=== PATIENT | male | born 1940 | race Caucasian/White ===

== ENCOUNTER 2016-04-20 15:33 | Emergency (ER) | payer OTHER ==
[~2016-04-20] VITALS: Ht 175.3 cm; Wt 96.3 kg
[~2016-04-20 15:33] MED LIST: ASCO100061 PO; ASPI-435 PO; ATEN50TA8 PO; B-COCAP2 PO; CALCTAB5 PO; CHOL20007 PO; CLOP1TAB15 PO; COEN400C3 PO; GLUC10007 PO; MAGN400T6 PO; METF-384 PO; METO50TA16 PO; MULT-506 PO; NTRGSL/4 SL; OMEG10007 PO; PRED-301 PO; PRLSR20 PO; STLS PO; VITA400C15 PO; ZTA10 PO
[2016-04-20 15:39] VITALS: Ht 175.3 cm; Wt 96.3 kg
[2016-04-20] MEDS ORDERED: ALBUT/IPRATROP 3MG/0.5MG NEB 3 ML VIAL INH STA (17:19)
[2016-04-20 17:34] VITALS: O2SAT 93
[2016-04-20 18:04] LABS: BASO % 0.3 %; BASO ABS # 0.02 K/uL (0-0.2); COMPLETE YES; EOS % 2.1 %; HEMATOCRIT 42.7 % (42-52); IG% 0.3 %; LYMPH % 22.9 %; LYMPH ABS # 1.49 K/uL (1.2-3.4); MEAN CELL VOLUME 94.1 fL (80-100); MEAN CORPUSCULAR HEMOGLOBIN 31.9 pg (25-34); MONO % 14.9 %; NEUT % 59.5 %; PLATELET COUNT 267 K/uL (130-400); RED BLOOD COUNT 4.54 M/uL (4.7-6.1); WHITE BLOOD COUNT 6.52 K/uL (4.8-10.8)
[2016-04-20 18:16] LABS: INR 1.1 (0.9-1.1); PROTHROMBIN TIME (PATIENT) 11.3 SECONDS (9.0-12.0)
[2016-04-20 18:24] LABS: BUN/CREATININE RATIO 15.3 (10-20); CREATININE 0.92 mg/dl (0.60-1.40); POTASSIUM 4.4 mmol/L (3.5-5.1)
--- NOTE | 2016-04-20 18:50 | DIAGNOSTIC IMAGING REPORT ---
CHEST 2 VIEWS ROUTINE CLINICAL HISTORY: Pneumonia COMPARISON STUDY: 09/16/2015 FINDINGS: There are postsurgical changes of a midline sternotomy. The heart is borderline enlarged. There is no failure. There are bibasilar opacities, most likely atelectatic. There is blunting of the right lateral costophrenic angle suggesting a trace effusion[ IMPRESSION: 1. Borderline cardiomegaly 2. Trace right pleural effusion 3. No evidence of lobar consolidation 4. Bibasilar opacities, likely atelectatic Electronically signed by: Pavel Baron M.D. 04/20/2016 6:49 PM Dictated Date/Time: 04/20/2016 6:48 PM
[2016-04-20] MEDS ORDERED: AZITHROMYCIN 250 MG TAB PO STA (19:13)
[2016-04-20] MEDS ORDERED: AZIT250T PO (19:15)
[2016-04-20] MEDS ORDERED: ALBUTEROL HFA 8 GM INHALER INH ONE (19:15)
[2016-04-20 19:47] VITALS: BP 133/86; PULSE 79; TEMP 36.5; O2SAT 94
--- NOTE | 2016-04-20 20:33 | EMERGENCY ROOM VISIT NOTE ---
History Report prepared by Tanner: Diandra Poole Under the Supervision of: Dr. Rob Salvador M.D. First contact with patient: 17:07 Chief Complaint: REFERRED BY DOCTOR Stated Complaint: LOW OXYGEN LEVELS- DR [facility] History of Present Illness The patient is a 75 year old male who presents to the Emergency Room to be evaluated for hypoxia this evening. The patient states that last week he initially developed a sore throat and a cough last week. His cough was productive with clear or light green/yellow sputum. Currently, he still has a cough, but it is no longer productive. He has some epigastric pain with coughing. Today, he went to Rodo Metcalf's office to be seen for a follow up appointment and his oxygen saturation was in the mid 80s. He states he did not feel short of breath at the time. He was put on nasal canula oxygen with improvement of the pulse ox. Per patient's daughter, he seemed slightly pale at the time but his color has improved. He was subsequently referred to the ER. Currently, the patient does not have any complaints. He notes that he has not been feeling any more short of breath than he does at baseline. He does not have any history of lung disease. He did have a heart surgery this past October. He does not have a history of smoking. Denies fevers, chills, chest pain, vomiting, leg swelling or pain, or other complaints. Source of History: patient Onset: this evening Position: other (global) Symptom Intensity: O2 in the 80s Modifying Factors (Relieving): oxygen Associated Symptoms: + cough, + sorethroat, No SOB, No chest pain, No chills , No fevers Review of Systems See HPI for pertinent positives & negatives. A total of 10 systems reviewed and were otherwise negative. Past Medical & Surgical Medical Problems: (1) ESOPHAGEAL REFLUX (2) HYPERLIPIDEMIA NEC/NOS (3) PAD (peripheral artery disease) Family History Heart disease Social History Smoking Status: Never Smoker Alcohol Use: occasionally Drug Use: none Marital Status: Housing Status: lives with significant other Occupation Status: retired Current/Historical Medications Scheduled Ascorbic Acid (Ascorbic Acid), 1,000 MG PO DAILY Aspirin (Aspirin 81), 81 MG PO BIDM Atenolol (Tenormin), 25 MG PO QPM Azithromycin (Zithromax), 250 MG PO DAILY Calcium (Caltrate), 600 MG PO QPM Cholecalciferol (Vitamin D3), 4,000 UNIT PO DAILY Clopidogrel (Plavix), 75 MG PO DAILY Coenzyme Q10 (Ubidecarenone) (Co Q-10 Maximum Strength), 400 MG PO DAILY Ezetimibe (Zetia), 10 MG PO DAILY Fish Oil ([place]-3), 2,400 MG PO QPM Glucosamine Sulfate (Glucosamine), 2,000 MG PO DAILY Magnesium Oxide (Mag-Ox), 400 MG PO DAILY Metformin Hcl (Glucophage), 1,000 MG PO BID Metoprolol Tartrate (Lopressor) (Lopressor), 50 MG PO BID Multivitamin (Multivitamin), 1 TAB PO DAILY Nitroglycerin (Nitrostat), 1 TAB SL UD Omeprazole (Prilosec), 20 MG PO TID Prednisone (Prednisone), 10 MG PO UD Stool Softener (Stool Softener), 100 MG PO BID Tocopheryl Acet,Dl-Alpha (Vitamin E), 400 INTER.UNIT PO DAILY Vitamin B Cmplx/Vitc/Folic Ac (Nephrocaps), 1 CAP PO QPM Allergies Coded Allergies: Yellow Jacket (Verified Allergy, Unknown, ANAPHYLAXIS, 04/20/16) Uncoded Allergies: INSECT STINGS (Allergy, Unknown, ANAPHYLAXIS, 09/27/15) WASPS (Allergy, Unknown, ANAPHYLAXIS, 09/27/15) Physical Exam Vital Signs Date Time Temp Pulse Resp B/P Pulse Ox O2 Delivery O2 Flow Rate FiO2 04/20/16 19:47 36.5 79 20 133/86 94 04/20/16 18:10 79 20 133/86 94 Room Air 04/20/16 17:34 93 Room Air 04/20/16 17:22 74 04/20/16 15:39 36.5 83 18 133/91 93 Room Air Physical Exam Constitutional: Vital signs reviewed. Pulse ox was 94 on room air. Eyes: Pupils are equal round reactive to light. Conjunctiva are noninjected. ENT: Pharynx is clear without erythema or exudate. Mucous membranes are moist. Neck supple without meningeal signs. Respiratory: Expiratory wheezing to auscultation bilaterally. Breath sounds are equal bilaterally. Cardiovascular: Regular rate and rhythm. No rubs or gallops. GI: Soft, nondistended and nontender. Bowel sounds are present. Musculoskeletal: No peripheral edema. No lower extremity tenderness. Sternal tenderness on palpation. Integumentary: No cyanosis. Neurological: The patient is awake and alert. No focal deficits. Psychiatric: Normal affect. Medical Decision & Procedures ER Provider Diagnostic Interpretation: X-ray results as stated below per interpretation by me and the radiologist: CHEST 2 VIEWS ROUTINE CLINICAL HISTORY: Pneumonia COMPARISON STUDY: 09/16/2015 FINDINGS: There are postsurgical changes of a midline sternotomy. The heart is borderline enlarged. There is no failure. There are bibasilar opacities, most likely atelectatic. There is blunting of the right lateral costophrenic angle suggesting a trace effusion[ IMPRESSION: 1. Borderline cardiomegaly 2. Trace right pleural effusion 3. No evidence of lobar consolidation 4. Bibasilar opacities, likely atelectatic Electronically signed by: Pavel Baron M.D. 04/20/2016 6:49 PM Dictated Date/Time: 04/20/2016 6:48 PM Laboratory Results 04/20/16 17:45 Red Blood Count 4.54, Mean Corpuscular Volume 94.1, Mean Corpuscular Hemoglobin 31.9, Mean Corpuscular Hemoglobin Concent 34.0, Mean Platelet Volume 9.0, Neutrophils (%) (Auto) 59.5, Lymphocytes (%) (Auto) 22.9, Monocytes (%) (Auto) 14.9, Eosinophils (%) (Auto) 2.1, Basophils (%) (Auto) 0.3, Neutrophils # (Auto ) 3.88, Lymphocytes # (Auto) 1.49, Monocytes # (Auto) 0.97, Eosinophils # (Auto ) 0.14, Basophils # (Auto) 0.02 04/20/16 17:45 Test 04/20/16 17:30 04/20/16 17:45 04/20/16 18:00 Influenza Type A Antigen Neg for Influ A (NEG) Influenza Type B Antigen Neg for Influ B (NEG) White Blood Count 6.52 K/uL (4.8-10.8) Red Blood Count 4.54 M/uL (4.7-6.1) Hemoglobin 14.5 g/dL (14.0-18.0) Hematocrit 42.7 % (42-52) Mean Corpuscular Volume 94.1 fL (80-100) Mean Corpuscular Hemoglobin 31.9 pg (25-34) Mean Corpuscular Hemoglobin Concent 34.0 g/dl (32-36) Platelet Count 267 K/uL (130-400) Mean Platelet Volume 9.0 fL (7.4-10.4) Neutrophils (%) (Auto) 59.5 % Lymphocytes (%) (Auto) 22.9 % Monocytes (%) (Auto) 14.9 % Eosinophils (%) (Auto) 2.1 % Basophils (%) (Auto) 0.3 % Neutrophils # (Auto) 3.88 K/uL (1.4-6.5) Lymphocytes # (Auto) 1.49 K/uL (1.2-3.4) Monocytes # (Auto) 0.97 K/uL (0.11-0.59) Eosinophils # (Auto) 0.14 K/uL (0-0.5) Basophils # (Auto) 0.02 K/uL (0-0.2) RDW Standard Deviation 51.6 fL (36.4-46.3) RDW Coefficient of Variation 15.1 % (11.5-14.5) Immature Granulocyte % (Auto) 0.3 % Immature Granulocyte # (Auto) 0.02 K/uL (0.00-0.02) Prothrombin Time 11.3 SECONDS (9.0-12.0) Prothromb Time International Ratio 1.1 (0.9-1.1) Activated Partial Thromboplast Time 26.7 SECONDS (21.0-31.0) Partial Thromboplastin Ratio 1.0 Anion Gap 9.0 mmol/L (3-11) Est Creatinine Clear Calc Drug Dose 77.0 ml/min Estimated GFR () 92.7 Estimated GFR (Non- 79.9 BUN/Creatinine Ratio 15.3 (10-20) Calcium Level 9.0 mg/dl (8.5-10.1) Bedside Troponin I 0.000 ng/ml (0-0.045) PZ-Ujy-M-Type Natriuretic Peptide 621 pg/ml (0-1800) Laboratory results as reviewed by me. 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 A complete history and physical exam was performed. 1718: Ordered DuoNeb 3 ml INH. 1815: I reassessed the patient. He finished the nebulizer treatment and is feeling much better. He has no wheezing on exam. 1912: I discussed test results with the patient. He is feeling better. He will be discharged home. Ordered Azithromycin 500 m PO, Albuterol 2 puffs INH. Medical Decision This is a 75-year-old male sent here by his doctor's office because of a low pulse oximeter reading and cold symptoms. Differential diagnosis includes pneumonia, bronchitis, URI, influenza, hypoxia. I did perform a limited focused review of portions of the patient's old chart on the electronic medical record. The patient has had no recent pertinent visits to this hospital. I did evaluate the patient as noted above. IV access was established. The patient was placed on a continuous panel monitor. The patient does not have any hypoxia on our monitor. He is not short of breath and has a pulse ox of 94 % on room air. I did order and personally review the patient's 12-lead EKG and chest x-ray as described above. Chest x-ray did not show any signs of pneumonia although I did note increased markings at the right base which were concerning to me. I did order and review the patient's blood work as noted in the electronic medical record. Troponin is 0. He is not anemic. Rapid flu test is negative. On exam the patient was wheezing. He was given a DuoNeb here. On reexamination his wheezing is completely resolved. He also feels much better. I did discuss the test results with the patient. His pulse ox remains 94% on room air. At this time there is no indication for hospitalization. It is unclear why his pulse ox was low at his doctor's office. This may be some type of equipment failure. I did recommend antibiotic treatment for his symptoms which she agreed with. He was given Zithromax 500 mg here and given a prescription for 4 more days at 250 mg. He was also given an albuterol MDI. He was discharged in good condition. He was advised follow closely with his doctor. Impression Primary Impression: Bronchitis Additional Impression: Reactive airway disease Scribe Attestation The scribe's documentation has been prepared under my direct and personally reviewed by me in its entirety. I confirm that the note above accurately reflects all work, treatment, procedures, and medical decision making performed by me. Departure Information Dispostion Home / Self-Care Prescriptions Azithromycin (Zithromax) 250 Mg Tab 250 MG PO DAILY, #4 TAB Prov: Rob Salvador M.D. 04/20/16 Referrals Rodo Metcalf III, CRNP (PCP) Patient Instructions ED Bronchitis Abx Tx, My [facility] Additional Instructions You have been examined and treated today on an emergency basis only. This is not a substitute for, or an effort to provide, complete comprehensive medical care. It is impossible to recognize and treat all injuries or illnesses in a single emergency department visit. It is therefore important that you follow up closely with your physician. Call as soon as possible for an appointment. Return for worsening symptoms or if you develop fever, vomiting, or any other concerning symptoms. Problem Qualifiers Additional Impression: Reactive airway disease Asthma severity: unspecified severity Asthma complication type: uncomplicated Qualified Codes: J45.909 - Unspecified asthma, uncomplicated
== END 2016-04-20 19:48 | disposition home or self-care (01) ==
LOC: C.EDB 15:35 → C.EDA 19:48
DX: J45.909 Unspecified asthma, uncomplicated (principal); K21.9 Gastro-esophageal reflux disease without esophagitis; E78.5 Hyperlipidemia, unspecified; I73.9 Peripheral vascular disease, unspecified; Z82.49 Family history of ischemic heart disease and other diseases of the circulatory system

== ENCOUNTER → 2016-04-22 | Outpatient (CLI) | payer OTHER ==
[~2016-04-22] MED LIST changes: +AZIT250T PO; +B-COTAB18 PO; +CALC-393 PO; +HYDR5SYP11 PO; +SENNTAB23 PO; +VITA400C3 PO; +VNTHFA/IN INH
[2016-04-22 09:31] LABS: BASO % 0.1 %; BASO ABS # 0.01 K/uL (0-0.2); COMPLETE YES; HEMATOCRIT 43.5 % (42-52); LYMPH % 32.3 %; LYMPH ABS # 2.26 K/uL (1.2-3.4); MEAN CELL VOLUME 93.5 fL (80-100); MEAN CORPUSCULAR HEMOGLOBIN 31.6 pg (25-34); MEAN CORPUSCULAR HGB CONC 33.8 g/dl (32-36); MEAN PLATELET VOLUME 9.2 fL (7.4-10.4); MONO % 9.3 %; NEUT % 55.3 %; PLATELET COUNT 281 K/uL (130-400); RED BLOOD COUNT 4.65 M/uL (4.7-6.1)
[2016-04-22 09:53] LABS: ESTIMATED AVERAGE GLUCOSE 146 mg/dl; HA1C FLAG Normal (Normal)
[2016-04-22 09:54] LABS: ALB/GLOB RATIO 0.9 (0.9-2); ALKALINE PHOSPHATASE 71 U/L (45-117); ALT/SGPT 40 U/L (12-78); AST/SGOT 18 U/L (15-37); BLOOD UREA NITROGEN 16 mg/dl (7-18); BUN/CREATININE RATIO 15.7 (10-20); CALCIUM 9.4 mg/dl (8.5-10.1); CARBON DIOXIDE 29 mmol/L (21-32); CHLORIDE 102 mmol/L (98-107); CHOLESTEROL 193 mg/dl (0-200); CHOLESTEROL/HDL RATIO 3.3; GLUCOSE 103 mg/dl (70-99); HDL CHOLESTEROL 58 mg/dl; LDL CHOLESTEROL CALCULATED 100 mg/dl; MAGNESIUM 2.1 mg/dl (1.8-2.4); SODIUM 140 mmol/L (136-145); TRIGLYCERIDES 174 mg/dl (0-150); VERY LOW DENSITY LIPOPROT CALC 35 mg/dl
[2016-04-22 10:08] LABS: RATIO 5.9 mcg/mg (0-30.0)
== END | disposition home or self-care (01) ==
LOC: C.LAB1850 07:03
PROVIDERS: ATTEND Nurse Practitioner Family
DX: K21.9 Gastro-esophageal reflux disease without esophagitis (principal); E88.81 Metabolic syndrome and other insulin resistance; E78.5 Hyperlipidemia, unspecified; E11.9 Type 2 diabetes mellitus without complications; I25.10 Atherosclerotic heart disease of native coronary artery without angina pectoris

== ENCOUNTER 2016-04-26 16:33 | Emergency (ER) | payer OTHER ==
[~2016-04-26] VITALS: Ht 175.3 cm; Wt 95.0 kg
[~2016-04-26 16:33] MED LIST changes: -B-COTAB18 PO; -CALC-393 PO; -HYDR5SYP11 PO; -SENNTAB23 PO; -VITA400C3 PO; -VNTHFA/IN INH
[2016-04-26 16:45] VITALS: TEMP 36.9; Ht 175.3 cm; Wt 95.0 kg
[2016-04-26] MEDS ORDERED: HYDROCODONE/HOMATROPINE SYRUP 5MG/1.5MG 5ML UDP PO STA (17:07)
[2016-04-26] MEDS ORDERED: HYDR5SYP11 PO (17:08)
[2016-04-26] MEDS ORDERED: HYCODAN 60ML BOTTLE HOMEPACK PO ONE (17:15)
--- NOTE | 2016-04-26 17:32 | EMERGENCY ROOM VISIT NOTE ---
History First contact with patient: 16:50 Chief Complaint: COUGH Stated Complaint: LOW O2 LEVELS, COUGHING SPELLS- HEART SURGERY 10/28 Nursing Triage Summary: Pt seen here Wed and placed on zpak and an inhaler for early pnx. "I have a dry cough that I can hardly stop. I had heart surgery in Oct and the coughing bothers me. I am coming here to try to get something to help with the cough." History of Present Illness The patient is a 75 year old male who presents to the Emergency Room with complaints of cough. He reports he came to the ED Wednesday after being sent here from his PCP's office for low oxygen saturations. He was prescribed a Z-pack which he completed yesterday and also an albuterol inhaler. He reports he felt better but his cough was persistent and nothing was helping it. He wanted to have an extra day of antibiotics. He denied any new fevers, chest pain, shortness of breath, or wheeze. Review of Systems See HPI for pertinent positives & negatives. A total of 10 systems reviewed and were otherwise negative. Past Medical/Surgical History Medical Problems: (1) ESOPHAGEAL REFLUX (2) HYPERLIPIDEMIA NEC/NOS (3) PAD (peripheral artery disease) PSHx: Bypass surgery in October 2015 Family History Heart disease Social History Smoking Status: Never Smoker Alcohol Use: occasionally Drug Use: none Marital Status: Housing Status: lives with significant other Occupation Status: retired Current/Historical Medications Scheduled Ascorbic Acid (Ascorbic Acid), 1,000 MG PO DAILY Aspirin (Aspirin 81), 81 MG PO BIDM Atenolol (Tenormin), 25 MG PO QPM Azithromycin (Zithromax), 250 MG PO DAILY Calcium (Caltrate), 600 MG PO QPM Cholecalciferol (Vitamin D3), 4,000 UNIT PO DAILY Clopidogrel (Plavix), 75 MG PO DAILY Coenzyme Q10 (Ubidecarenone) (Co Q-10 Maximum Strength), 400 MG PO DAILY Ezetimibe (Zetia), 10 MG PO DAILY Fish Oil ([place]-3), 2,400 MG PO QPM Glucosamine Sulfate (Glucosamine), 2,000 MG PO DAILY Magnesium Oxide (Mag-Ox), 400 MG PO DAILY Metformin Hcl (Glucophage), 1,000 MG PO BID Metoprolol Tartrate (Lopressor) (Lopressor), 50 MG PO BID Multivitamin (Multivitamin), 1 TAB PO DAILY Nitroglycerin (Nitrostat), 1 TAB SL UD Omeprazole (Prilosec), 20 MG PO TID Prednisone (Prednisone), 10 MG PO UD Stool Softener (Stool Softener), 100 MG PO BID Tocopheryl Acet,Dl-Alpha (Vitamin E), 400 INTER.UNIT PO DAILY Vitamin B Cmplx/Vitc/Folic Ac (Nephrocaps), 1 CAP PO QPM Scheduled PRN Hydrocodone W/ Homatropine (Hycodan 5/1.5MG 5 Ml), 5 ML PO HS PRN for Cough Allergies Coded Allergies: Yellow Jacket (Verified Allergy, Unknown, ANAPHYLAXIS, 04/20/16) Uncoded Allergies: INSECT STINGS (Allergy, Unknown, ANAPHYLAXIS, 09/27/15) WASPS (Allergy, Unknown, ANAPHYLAXIS, 09/27/15) Physical Exam Vital Signs Date Time Temp Pulse Resp B/P Pulse Ox O2 Delivery O2 Flow Rate FiO2 04/26/16 16:45 36.9 77 20 144/86 92 Room Air Physical Exam GENERAL: Awake, alert, well-appearing, in no acute distress HENT: Normocephalic, atraumatic. Oropharynx unremarkable. EYES: Normal conjunctiva. Sclera non-icteric. NECK: Supple. No nuchal rigidity. FROM. No JVD. RESPIRATORY: Clear to auscultation. No wheeze with forced expiration. CARDIAC: Regular rate, normal rhythm. Extremities warm and well perfused. Pulses equal. LOWER EXTREMITIES: Calves are equal size bilaterally and non-tender. No edema. No discoloration. NEURO: Normal sensorium. No sensory or motor deficits noted. SKIN: No rash or jaundice noted. Medical Decision & Procedures Medical Decision 75 yo M with recent atypical pneumonia, treated with Azithromycin, who presents with persistent cough. Differential includes: bronchospasm, atelectasis, GERD, worsening pneumonia. With his history and clinical exam it seemed the cough was his biggest issue. His O2 saturations were 92% on room air and he did not feel short of breath at all. He had follow up with his PCP for tomorrow AM at 7am. He did not want to have another CXR, nor did I think this was indicated. He was provided with a prescription for hycodan syrup and discharged home in good condition. Impression Primary Impression: Cough Departure Information Dispostion Home / Self-Care Condition GOOD Prescriptions Hydrocodone W/ Homatropine (HYCODAN 5/1.5MG 5 ML) 1 Syp Syp 5 ML PO HS Y for Cough, #120 ML Prov: Edmar Joseph MD 04/26/16 Referrals Kym Patton DO (PCP) Forms HOME CARE DOCUMENTATION FORM, IMPORTANT VISIT INFORMATION Patient Instructions My [facility] Additional Instructions Follow up with your PCP as arranged (tomorrow at 7am). Use the cough syrup tonight as needed. If you notice any chest pain, shortness of breath, worsening wheeze, fevers, or other symptoms, please seek medical attention or return to the ED. Resident Tracking Resident Involvement: Resident Care Provided Care Provided: Adult ED
--- NOTE | 2016-04-26 17:33 | EMERGENCY ROOM VISIT NOTE ---
ED Visit Note First contact with patient: 16:50 Resident Physician Supervision Note: I interviewed and examined the patient. Discussed with Dr. Lewis and agree with findings and plan as documented in the note. Documented By: Edmar Joseph Problem List Medical Problems: (1) ESOPHAGEAL REFLUX Status: Chronic (2) HYPERLIPIDEMIA NEC/NOS Status: Chronic Current/Historical Medications Scheduled Ascorbic Acid (Ascorbic Acid), 1,000 MG PO DAILY Aspirin (Aspirin 81), 81 MG PO BIDM Atenolol (Tenormin), 25 MG PO QPM Azithromycin (Zithromax), 250 MG PO DAILY Calcium (Caltrate), 600 MG PO QPM Cholecalciferol (Vitamin D3), 4,000 UNIT PO DAILY Clopidogrel (Plavix), 75 MG PO DAILY Coenzyme Q10 (Ubidecarenone) (Co Q-10 Maximum Strength), 400 MG PO DAILY Ezetimibe (Zetia), 10 MG PO DAILY Fish Oil ([place]-3), 2,400 MG PO QPM Glucosamine Sulfate (Glucosamine), 2,000 MG PO DAILY Magnesium Oxide (Mag-Ox), 400 MG PO DAILY Metformin Hcl (Glucophage), 1,000 MG PO BID Metoprolol Tartrate (Lopressor) (Lopressor), 50 MG PO BID Multivitamin (Multivitamin), 1 TAB PO DAILY Nitroglycerin (Nitrostat), 1 TAB SL UD Omeprazole (Prilosec), 20 MG PO TID Prednisone (Prednisone), 10 MG PO UD Stool Softener (Stool Softener), 100 MG PO BID Tocopheryl Acet,Dl-Alpha (Vitamin E), 400 INTER.UNIT PO DAILY Vitamin B Cmplx/Vitc/Folic Ac (Nephrocaps), 1 CAP PO QPM Scheduled PRN Hydrocodone W/ Homatropine (Hycodan 5/1.5MG 5 Ml), 5 ML PO HS PRN for Cough Allergies Coded Allergies: Yellow Jacket (Verified Allergy, Unknown, ANAPHYLAXIS, 04/26/16) Uncoded Allergies: INSECT STINGS (Allergy, Unknown, ANAPHYLAXIS, 09/27/15) WASPS (Allergy, Unknown, ANAPHYLAXIS, 09/27/15) Vital Signs Date Time Temp Pulse Resp B/P Pulse Ox O2 Delivery O2 Flow Rate FiO2 04/26/16 16:45 36.9 77 20 144/86 92 Room Air Departure Information Impression Primary Impression: Cough Dispostion Home / Self-Care Condition GOOD Prescriptions Hydrocodone W/ Homatropine (HYCODAN 5/1.5MG 5 ML) 1 Syp Syp 5 ML PO HS Y for Cough, #120 ML Prov: Edmar Joseph MD 04/26/16 Referrals Kym Patton DO (PCP) Forms HOME CARE DOCUMENTATION FORM, IMPORTANT VISIT INFORMATION Patient Instructions My [facility] Additional Instructions Follow up with your PCP as arranged (tomorrow at 7am). Use the cough syrup tonight as needed. If you notice any chest pain, shortness of breath, worsening wheeze, fevers, or other symptoms, please seek medical attention or return to the ED.
[2016-04-26] MEDS ORDERED: VNTHFA/IN INH (17:39)
[2016-04-26] MEDS ORDERED: B-COTAB18 PO (17:39)
[2016-04-26] MEDS ORDERED: SENNTAB23 PO (17:39)
[2016-04-26] MEDS ORDERED: VITA400C3 PO (17:39)
[2016-04-26] MEDS ORDERED: CALC-393 PO (17:39)
[2016-04-26 18:08] VITALS: BP 139/85; PULSE 69; O2SAT 92
== END 2016-04-26 17:45 | disposition home or self-care (01) ==
LOC: C.EDB 16:36 → C.EDC 17:45
DX: R05 Cough (principal); K21.9 Gastro-esophageal reflux disease without esophagitis; E78.5 Hyperlipidemia, unspecified; I73.9 Peripheral vascular disease, unspecified

== ENCOUNTER → 2016-07-22 | Outpatient (CLI) | payer OTHER ==
[~2016-07-22] MED LIST changes: -AZIT250T PO; -B-COCAP2 PO; +B-COTAB18 PO; +CALC-393 PO; -CALCTAB5 PO; +SENNTAB23 PO; -STLS PO; -VITA400C15 PO; +VITA400C3 PO; +VNTHFA/IN INH
[2016-07-22 09:54] LABS: BLOOD UREA NITROGEN 24 mg/dl (7-18); BUN/CREATININE RATIO 27.8 (10-20); CALCIUM 9.4 mg/dl (8.5-10.1); CARBON DIOXIDE 32 mmol/L (21-32); CHLORIDE 104 mmol/L (98-107); CREATININE 0.86 mg/dl (0.60-1.40); GLUCOSE 111 mg/dl (70-99); POTASSIUM 4.4 mmol/L (3.5-5.1); SODIUM 140 mmol/L (136-145)
[2016-07-22 09:55] LABS: TRIGLYCERIDES 123 mg/dl (0-150)
[2016-07-22 10:08] LABS: ESTIMATED AVERAGE GLUCOSE 128 mg/dl; HA1C FLAG Normal (Normal)
== END | disposition home or self-care (01) ==
LOC: C.LAB1850 06:45
PROVIDERS: ATTEND Nurse Practitioner Family
DX: K21.9 Gastro-esophageal reflux disease without esophagitis (principal); I10 Essential (primary) hypertension; E88.81 Metabolic syndrome and other insulin resistance; M15.9 Polyosteoarthritis, unspecified; E11.9 Type 2 diabetes mellitus without complications; I25.10 Atherosclerotic heart disease of native coronary artery without angina pectoris; E78.5 Hyperlipidemia, unspecified

== ENCOUNTER 2016-08-01 11:08 | Emergency (ER) | payer OTHER ==
[~2016-08-01] VITALS: Ht 175.3 cm; Wt 90.0 kg
[2016-08-01 11:10] VITALS: Ht 175.3 cm; Wt 90.0 kg
[2016-08-01] MEDS ORDERED: XYLOCAINE 1%/SOD BICARB 20 ML VIAL INFIL ONE (11:30)
[2016-08-01 12:25] VITALS: BP 164/90; PULSE 68; O2SAT 99
--- NOTE | 2016-08-01 14:57 | EMERGENCY ROOM VISIT NOTE ---
History Report prepared by Tanner: Chente Barrera Under the Supervision of: Dr. John Nguyen M.D. First contact with patient: 11:19 Chief Complaint: LEG PAIN,LEG INJURY Stated Complaint: CUT ON LEG History of Present Illness The patient is a 76 year old male who presents to the Emergency Room with complaints of leg pain that began 40 minutes ago. He rates his pain a 2/10 in severity. He was at work when he was walking by a machine. His leg got caught on the machine and cut open his leg. The machine was metal. His pants did not tear afterward. He is on Aspirin and Plavix secondary to a previous heart surgery. Pt denies LOC, other extremity pain, numbness, weakness, or other complaints. Source of History: patient Onset: 40 minutes ago Position: leg (right) Symptom Intensity: 2/10 Quality: ache Timing: constant Review of Systems See HPI for pertinent positives and negatives. A total of six systems were reviewed and were otherwise negative. Past Medical & Surgical Medical Problems: (1) ESOPHAGEAL REFLUX (2) HYPERLIPIDEMIA NEC/NOS (3) PAD (peripheral artery disease) Family History Heart disease Social History Smoking Status: Never Smoker Smokeless Tobacco Use: No Alcohol Use: none Drug Use: none Marital Status: Housing Status: lives with significant other Occupation Status: employed Current/Historical Medications Scheduled Ascorbic Acid (Ascorbic Acid), 1,000 MG PO DAILY Aspirin (Aspirin 81), 81 MG PO BIDM Atenolol (Tenormin), 25 MG PO QPM B-Complex Vitamins (Vitamin B Complex), 1 TAB PO DAILY Calcium Carbonate (Calcium), 600 MG PO QPM Cholecalciferol (Vitamin D3), 4,000 UNIT PO DAILY Clopidogrel (Plavix), 75 MG PO DAILY Coenzyme Q10 (Ubidecarenone) (Co Q-10 Maximum Strength), 400 MG PO DAILY Ezetimibe (Zetia), 10 MG PO DAILY Fish Oil ([place]-3), 2,400 MG PO QPM Glucosamine Sulfate (Glucosamine), 2,000 MG PO DAILY Magnesium Oxide (Mag-Ox), 400 MG PO DAILY Metformin Hcl (Glucophage), 1,000 MG PO BID Metoprolol Tartrate (Lopressor) (Lopressor), 50 MG PO BID Multivitamin (Multivitamin), 1 TAB PO DAILY Nitroglycerin (Nitrostat), 1 TAB SL UD Omeprazole (Prilosec), 20 MG PO TID Prednisone (Prednisone), 10 MG PO UD Sennosides-Docusate Sodium (Stool Softener), 1 TAB PO BID Vitamin E (Vitamin E 400 Iu), 400 INTER.UNIT PO DAILY Scheduled PRN Albuterol Hfa (Ventolin Hfa), 2 PUFFS INH UD PRN for Cough Allergies Coded Allergies: Yellow Jacket (Verified Allergy, Unknown, ANAPHYLAXIS, 04/26/16) Uncoded Allergies: INSECT STINGS (Allergy, Unknown, ANAPHYLAXIS, 09/27/15) WASPS (Allergy, Unknown, ANAPHYLAXIS, 09/27/15) Physical Exam Vital Signs Date Time Temp Pulse Resp B/P Pulse Ox O2 Delivery O2 Flow Rate FiO2 08/01/16 12:25 68 20 164/90 99 Physical Exam GENERAL: Awake, alert, well-appearing, in no distress MUSCULOSKELETAL: Chest examination reveals no tenderness. The back is symmetrical on inspection without obvious abnormality. There is no CVA tenderness to palpation. No joint edema. There is a large J-shaped laceration to the right lateral wooten. NEURO: Normal sensorium. No sensory or motor deficits noted. SKIN: No rash or jaundice noted. Medical Decision & Procedures Procedure Laceration Repair Procedure Location: Right lateral wooten Total length: 10 cm Complexity: Intermediate Verbal consent was obtained after the risks and benefits were explained, including but not limited to bleeding, scarring, infection, pain, and bone/joint /nerve damage. At this time, the risks of the procedure are less than the risks of NOT performing the procedure. A time out was taken and the correct patient and site identified. The skin was prepped with betadine. The target area was anesthetized with 4 ml of 1% lidocaine without epinephrine. Copious irrigation was performed using normal saline. The skin was re-prepped with Betadine and a sterile field set. The wound was explored for foreign bodies and none found. Examination revealed no injury to deep structures such as tendons, bone, or significant blood vessels. Debridement was not performed. The wound edges were approximated using 16, 4-0 simple interrupted nylon sutures with Dermabond. Hemostasis and excellent approximation was achieved. Antibacterial ointment and a sterile dressing applied. Detailed wound care instructions and signs and symptoms of infection reviewed with the patient. No complications and the patient tolerated the procedure well. ED Course 1119: The patient was evaluated in room A10. A complete history and physical exam was performed. 1130: I performed a laceration repair procedure at this time. Please see the procedure note for more information. Ordered Lidocaine HCl 20 ml INFIL. 1230: I reevaluated the patient. Discussed results and discharge instructions: He verbalized understanding and agreement. The patient is ready for discharge. Medical Decision Patient presented to the emergency department with an isolated laceration to the right lower leg. The patient was consented. He underwent the laceration repair as above. There is no evidence of foreign body. No reason for imaging at this time. Blood work was deferred. Conservative management was discussed. The patient felt comfortable with the plan. He is discharged in stable condition. Impression Primary Impression: Laceration of right lower leg Scribe Attestation The scribe's documentation has been prepared under my direction and personally reviewed by me in its entirety. I confirm that the note above accurately reflects all work, treatment, procedures, and medical decision making performed by me. Departure Information Dispostion Home / Self-Care Referrals Kym Patton DO (PCP) Rodo Metcalf III, CRNP Forms HOME CARE DOCUMENTATION FORM, IMPORTANT VISIT INFORMATION Patient Instructions My [facility] Additional Instructions WOUND CARE INSTRUCTIONS: Bacitracin to wounds once daily. Use the gauze and mark wrap for the next 24-48 hours. Then Use a non-stick dressing such as a large band-aid. Change the dressings once a day. Tylenol as needed for pain. Allow your wounds to air dry several hours per day when you are resting, but it is a good idea to keep them covered while sleeping to prevent irritation and the sheets sticking to the wound. Apply direct pressure for any bleeding. Return to the ER immediately for spreading redness, fevers, pus-like drainage, severe pain, or as needed. Return to the ER or your family doctor in 10-12 days for suture removal, or sooner as needed. Problem Qualifiers Primary Impression: Laceration of right lower leg Encounter type: initial encounter Qualified Codes: S81.811A - Laceration without foreign body, right lower leg, initial encounter
== END 2016-08-01 12:26 | disposition home or self-care (01) ==
LOC: C.EDB 11:09 → C.EDA 12:26
DX: S81.811A Laceration without foreign body, right lower leg, initial encounter (principal); W22.8XXA Striking against or struck by other objects, initial encounter; Y99.0 Civilian activity done for income or pay; Z79.899 Other long term (current) drug therapy; E11.9 Type 2 diabetes mellitus without complications; I10 Essential (primary) hypertension; I73.9 Peripheral vascular disease, unspecified; Z95.1 Presence of aortocoronary bypass graft; Z79.02 Long term (current) use of antithrombotics/antiplatelets

== ENCOUNTER → 2016-10-29 | Outpatient (CLI) | payer OTHER ==
[2016-10-29 16:01] LABS: BASO % 0.2 %; BASO ABS # 0.02 K/uL (0-0.2); COMPLETE YES; EOS % 0.7 %; HEMATOCRIT 45.1 % (42-52); IG% 0.2 %; LYMPH % 21.1 %; LYMPH ABS # 1.76 K/uL (1.2-3.4); MEAN CELL VOLUME 96.8 fL (80-100); MEAN CORPUSCULAR HGB CONC 34.1 g/dl (32-36); MEAN PLATELET VOLUME 9.1 fL (7.4-10.4); MONO % 10.8 %; PLATELET COUNT 324 K/uL (130-400); RED BLOOD COUNT 4.66 M/uL (4.7-6.1); WHITE BLOOD COUNT 8.33 K/uL (4.8-10.8)
[2016-10-29 16:21] LABS: ALT/SGPT 26 U/L (12-78); AST/SGOT 16 U/L (15-37); BLOOD UREA NITROGEN 23 mg/dl (7-18); BUN/CREATININE RATIO 23.1 (10-20); CARBON DIOXIDE 27 mmol/L (21-32); CHLORIDE 106 mmol/L (98-107); GLUCOSE 137 mg/dl (70-99); SODIUM 139 mmol/L (136-145)
[2016-10-29 16:31] LABS: ALB/GLOB RATIO 1.1 (0.9-2); ALKALINE PHOSPHATASE 58 U/L (45-117)
== END | disposition home or self-care (01) ==
LOC: C.LAB1850 14:36
PROVIDERS: ATTEND Nurse Practitioner Family
DX: R55 Syncope and collapse (principal)

== ENCOUNTER → 2016-12-03 | Outpatient (CLI) | payer OTHER | END | disposition home or self-care (01) | LOC: C.PATHSPEC 16:32 | PROVIDERS: ATTEND Dermatology | DX: L82.0 Inflamed seborrheic keratosis (principal); L82.1 Other seborrheic keratosis ==

== ENCOUNTER → 2017-02-08 | Outpatient (CLI) | payer OTHER ==
[2017-02-08 09:26] LABS: BASO % 0.3 %; BASO ABS # 0.02 K/uL (0-0.2); COMPLETE YES; EOS % 1.8 %; HEMATOCRIT 45.9 % (42-52); IG% 0.3 %; LYMPH % 32.9 %; LYMPH ABS # 2.19 K/uL (1.2-3.4); MEAN CELL VOLUME 98.1 fL (80-100); MEAN CORPUSCULAR HEMOGLOBIN 33.3 pg (25-34); MEAN PLATELET VOLUME 9.3 fL (7.4-10.4); MONO % 13.4 %; NEUT % 51.3 %; PLATELET COUNT 305 K/uL (130-400); RED BLOOD COUNT 4.68 M/uL (4.7-6.1); WHITE BLOOD COUNT 6.65 K/uL (4.8-10.8)
[2017-02-08 09:48] LABS: BLOOD UREA NITROGEN 28 mg/dl (7-18); CALCIUM 8.8 mg/dl (8.5-10.1); CARBON DIOXIDE 28 mmol/L (21-32); CHLORIDE 104 mmol/L (98-107); CREATININE 0.94 mg/dl (0.60-1.40); GLUCOSE 93 mg/dl (70-99); POTASSIUM 4.2 mmol/L (3.5-5.1); SODIUM 140 mmol/L (136-145); TRIGLYCERIDES 184 mg/dl (0-150); VERY LOW DENSITY LIPOPROT CALC 37 mg/dl
[2017-02-08 09:51] LABS: ALKALINE PHOSPHATASE 61 U/L (45-117); ALT/SGPT 36 U/L (12-78); AST/SGOT 16 U/L (15-37); CHOLESTEROL 219 mg/dl (0-200); CHOLESTEROL/HDL RATIO 3.5; HDL CHOLESTEROL 62 mg/dl; LDL CHOLESTEROL CALCULATED 120 mg/dl
[2017-02-08 10:58] LABS: ESTIMATED AVERAGE GLUCOSE 128 mg/dl; HA1C FLAG Normal (Normal)
== END | disposition home or self-care (01) ==
LOC: C.LAB1850 07:29
PROVIDERS: ATTEND Nurse Practitioner Family
DX: I10 Essential (primary) hypertension (principal); E88.81 Metabolic syndrome and other insulin resistance; E11.9 Type 2 diabetes mellitus without complications; E78.5 Hyperlipidemia, unspecified

== ENCOUNTER → 2017-04-23 | Day surgery (SDC) | payer OTHER ==
[2017-04-13 08:23] VITALS: BMI 29.0
[~2017-04-23] VITALS: Ht 177.8 cm; Wt 93.2 kg
[~2017-04-23] MED LIST changes: -ATEN50TA8 PO; -CALC-393 PO; +CALC600T9 PO; -CLOP1TAB15 PO; +DOCU100T7 PO; +FENTANYL CITRATE INJ 50 MCG/1 ML 2 ML VIAL ONE; -GLUC10007 PO; +GLUCTAB7 PO; +LIDOCAINE HCL 2% 2 ML VIAL (20MG/ML) ONE; +METO-551 PO; +MIDAZOLAM HCL 1 MG/ML 2ML VIAL ONE; -NTRGSL/4 SL; +PROPOFOL IV EMULSION 10 MG/ML 20 ML VIAL IV ONE; -SENNTAB23 PO; +SODIUM CHLORIDE 0.9% 500ML 500 ML IV ONE; -VITA400C3 PO; -VNTHFA/IN INH
[2017-04-23 10:35] VITALS: Ht 177.8 cm; Wt 93.2 kg
--- NOTE | 2017-04-23 10:38 | Endo History and Physical ---
History & Physical Date of Service: Apr 23, 2017. Chief Complaint: Screening colonoscopy and GERD Referring Physician: Rodo Metcalf History of Present Illness 76 yo CM who presents for EGD secondary to GERD and Screening colonoscopy. Past Medical History Diabetes, Neurological Disorder, Arthritis, Reflux, High Cholesterol, Hypertension, Chronic Steroid Use Past Surgical History Hx Cardiac Surgery: Yes (HEART CATH, NO STENTS; CABG X5 VESSELS) Hx Internal Defibrillator: No Hx Pacemaker: No Hx Abdominal Surgery: No Hx of Implantable Prosthesis: No Hx Post-Op Nausea and Vomiting: No Hx Cancer Surgery: No Hx Thoracic Surgery: No Hx Orthopedic: Yes (LT/RT TKA) Hx Urinary Tract Surgery: No Family History None Social History Smoking Status: Never Smoker Hx Substance Use: No Hx Alcohol Use: No Allergies Coded Allergies: NO KNOWN DRUG ALLERGIES (Verified Allergy, Unknown, ., 04/13/17) Yellow Jacket (Verified Allergy, Unknown, ANAPHYLAXIS, 04/13/17) Uncoded Allergies: INSECT STINGS (Allergy, Unknown, ANAPHYLAXIS, 09/27/15) WASPS (Allergy, Unknown, ANAPHYLAXIS, 09/27/15) Current Medications Reported Home Medications Medications Dose Route/Sig Max Daily Dose Days Date Category Stool Softener (Docusate Sodium) 100 Mg Tab 1 Tab PO QPM 04/13/17 Reported Lopressor (Metoprolol Tartrate) 50 Mg Tab 50 Mg PO QPM 04/13/17 Reported Glucosamine Chondroitin (Snjessqjrrd-Meqmtsazrpz-Kpe C-) 1 Tab Tab 1 Tab PO DAILY 04/13/17 Reported Calcium + D (Calcium Carbonate-Vitamin D) 1 Tab Tab 1 Tab PO QAM 04/13/17 Reported Vitamin B Complex (B-Complex Vitamins) 1 Tab Tab 1 Tab PO DAILY 04/26/16 Reported Lopressor (Metoprolol Tartrate) 50 Mg Tab 0.5 Tab PO QAM 01/02/16 Reported Zetia (Ezetimibe) 10 Mg Tab 10 Mg PO QPM 09/16/15 Reported Vitamin D3 (Cholecalciferol) 2,000 Unit Tab 4,000 Unit PO DAILY 09/16/15 Reported Ascorbic Acid 1,000 Mg Tab 1,000 Mg PO DAILY 09/16/15 Reported Glucophage (Metformin Hcl) 1,000 Mg Tab 0.5 Tab PO BID 09/16/15 Reported Co Q-10 Maximum Strength (Coenzyme Q10 (Ubidecarenone)) 400 Mg Cap 400 Mg PO QAM 09/16/15 Reported Aspirin 81 (Aspirin) 81 Mg Tab 81 Mg PO QAM 09/16/15 Reported Mag-Ox (Magnesium Oxide) 400 Mg Tab 400 Mg PO DAILY 05/01/15 Reported Prednisone 5 Mg Tab 1 Tab PO BID 05/01/15 Reported [place]-3 (Fish Oil) 1 Ea Cap 2,400 Mg PO QPM 01/18/09 Reported Multivitamin (Multivitamins) Tab 1 Tab PO DAILY 01/18/09 Reported Prilosec (Omeprazole) 20 Mg Capcr 20 Mg PO BID 01/18/09 Reported Vital Signs Weight (Kilograms): 93.18 Height (Feet): 5 Height (Inches): 10 Physical Exam General Appearance: WD/WN, no apparent distress Respiratory/Chest: Auscultation: breath sounds normal Cardiovascular: Heart Auscultation: RRR Abdomen: Bowel Sounds: normal Inspection & Palpation: soft, non-distended, no tenderness, guarding & rebound Assessment and Plan Assessment: 76 yo CM who presents for EGD secondary to GERD and Screening colonoscopy. Plan: Proceed with EGD and colonoscopy.
--- NOTE | 2017-04-23 11:33 | Discharge Instructions ---
Endoscopy Patient Instructions Date / Procedure(s) Performed Apr 23, 2017. Colonoscopy, EGD Allergy Information Coded Allergies: NO KNOWN DRUG ALLERGIES (Verified Allergy, Unknown, ., 04/23/17) Yellow Jacket (Verified Allergy, Unknown, ANAPHYLAXIS, 04/23/17) Uncoded Allergies: INSECT STINGS (Allergy, Unknown, ANAPHYLAXIS, 09/27/15) WASPS (Allergy, Unknown, ANAPHYLAXIS, 09/27/15) Discharge Date / Findings Apr 23, 2017. EGD: Gastritis s/p biopsies, Brushings for Miracle Esophagitis Colonoscopy: Colon polyps, Diverticulosis, Internal hemorrhoids Medication Instructions Stopped Medication(s): METFORMIN OK to resume all medications today as prescribed Reported Home Medications Medications Dose Route/Sig Max Daily Dose Days Date Category Stool Softener (Docusate Sodium) 100 Mg Tab 1 Tab PO QPM 04/13/17 Reported Lopressor (Metoprolol Tartrate) 50 Mg Tab 50 Mg PO QPM 04/13/17 Reported Glucosamine Chondroitin (Hwnfmblivdl-Bcaayfzwvin-Hti C-) 1 Tab Tab 1 Tab PO DAILY 04/13/17 Reported Calcium + D (Calcium Carbonate-Vitamin D) 1 Tab Tab 1 Tab PO QAM 04/13/17 Reported Vitamin B Complex (B-Complex Vitamins) 1 Tab Tab 1 Tab PO DAILY 04/26/16 Reported Lopressor (Metoprolol Tartrate) 50 Mg Tab 0.5 Tab PO QAM 01/02/16 Reported Zetia (Ezetimibe) 10 Mg Tab 10 Mg PO QPM 09/16/15 Reported Vitamin D3 (Cholecalciferol) 2,000 Unit Tab 4,000 Unit PO DAILY 09/16/15 Reported Ascorbic Acid 1,000 Mg Tab 1,000 Mg PO DAILY 09/16/15 Reported Glucophage (Metformin Hcl) 1,000 Mg Tab 0.5 Tab PO BID 09/16/15 Reported Co Q-10 Maximum Strength (Coenzyme Q10 (Ubidecarenone)) 400 Mg Cap 400 Mg PO QAM 09/16/15 Reported Aspirin 81 (Aspirin) 81 Mg Tab 81 Mg PO QAM 09/16/15 Reported Mag-Ox (Magnesium Oxide) 400 Mg Tab 400 Mg PO DAILY 05/01/15 Reported Prednisone 5 Mg Tab 1 Tab PO BID 05/01/15 Reported [place]-3 (Fish Oil) 1 Ea Cap 2,400 Mg PO QPM 01/18/09 Reported Multivitamin (Multivitamins) Tab 1 Tab PO DAILY 01/18/09 Reported Prilosec (Omeprazole) 20 Mg Capcr 20 Mg PO BID 01/18/09 Reported Provider Instructions Activity Restrictions - No exercising or heavy lifting for 24 hours. - Do not drink alcohol the day of the procedure. - Do not drive a car or operate machinery until the day after the procedure. - Do not make any important decisions or sign important papers in 24 hours after the procedure. Following Day: - Return to full activity which may include returning to work/school. Diet Start your diet with liquids and light foods (jello, soup, juice, toast). Then eat your usual diet if not nauseated. Treatment For Common After Affects For mild abdominal pain, bloating, or excessive gas: - Rest - Eat lightly - Lie on right side Follow-Up Information Follow-up with DR. JEROD VALENCIA as scheduled Anesthesia Information What You Should Know You have had a procedure that required some medicine to reduce anxiety and discomfort. This treatment is called moderate sedation. After receiving the treatment, you may be sleepy, but you will be able to breathe on your own. The effects of the treatment may last for several hours. Follow these instructions along with Activity/Diet recommendations noted above: * Do NOT do anything where dizziness or clumsiness would be dangerous. * Rest quietly at home today, then you can be up and about tomorrow. * Have a responsible person stay with you the rest of today. * You may have had an I.V. today. If so, you may take the dressing off later today. Recommendations Call your doctor if: * Trouble breathing * Continuous vomiting for more than 24 hours * Temperature above 101 degrees * Severe abdominal pain or bloating * Pain not relieved by pain medicine ordered * There is increased drainage or redness from any incision * A large amount of rectal bleeding greater than 2-3 tablespoons. (If you had a polyp/s removed or have hemorrhoids, a small amount of blood - from the rectum is to be expected.) * You have any unanswered questions or concerns. IN THE EVENT OF A SERIOUS EMERGENCY, GO TO THE NEAREST EMERGENCY ROOM Your discharge instructions were prepared by provider Pedro Sanabria. Patient Instructions Signature Page Micah Mclain Patient (or Guardian) Signature/Date: I have read and understand the instructions given to me by my caregivers. Caregiver/RN/Doctor Signature/Date: The above-named patient and/or guardian has received patient instructions on this date. + Original Patient Signature Page (only) stays with chart. Please make copy for patient.
--- NOTE | 2017-04-23 11:37 | GI REPORT ---
Procedure Date: 04/23/2017 10:54 AM Procedure: Upper GI endoscopy Indications: Gastro-esophageal reflux disease Medicines: Monitored Anesthesia Care Complications: No immediate complications. Estimated Blood Loss: Estimated blood loss: none. Procedure: Pre-Anesthesia Assessment: - Prior to the procedure, a History and Physical was performed, and patient medications and allergies were reviewed. The patient's tolerance of previous anesthesia was also reviewed. The risks and benefits of the procedure and the sedation options and risks were discussed with the patient. All questions were answered, and informed consent was obtained. Prior Anticoagulants: The patient has taken aspirin, last dose was 1 day prior to procedure. ASA Grade Assessment: III - A patient with severe systemic disease. After reviewing the risks and benefits, the patient was deemed in satisfactory condition to undergo the procedure. After obtaining informed consent, the endoscope was passed under direct vision. Throughout the procedure, the patient's blood pressure, pulse, and oxygen saturations were monitored continuously. The scope was introduced through the mouth, and advanced to the second part of duodenum. The upper GI endoscopy was accomplished without difficulty. The patient tolerated the procedure well. Findings: Localized candidiasis was found in the upper third of the esophagus and in the middle third of the esophagus. Cells for cytology were obtained by brushing. Localized mild inflammation characterized by erythema was found in the gastric antrum. Biopsies were taken with a cold forceps for histology. The examined duodenum was normal. Impression: - Monilial esophagitis. Cells for cytology obtained. - Gastritis. Biopsied. - Normal examined duodenum. Recommendation: - Resume previous diet. - Continue present medications. - Await pathology results. - Return to primary care physician as previously scheduled. Pedro Sanabria, 04/23/2017 11:37:36 AM This report has been signed electronically. Note Initiated On: 04/23/2017 10:54 AM I attest to the content of the Intraoperative Record and orders documented therein, exceptions below
--- NOTE | 2017-04-23 11:40 | GI REPORT ---
Procedure Date: 04/23/2017 11:05 AM Procedure: Colonoscopy Indications: Screening for colorectal malignant neoplasm Medicines: Monitored Anesthesia Care Complications: No immediate complications. Estimated Blood Loss: Estimated blood loss: none. Procedure: Pre-Anesthesia Assessment: - Prior to the procedure, a History and Physical was performed, and patient medications and allergies were reviewed. The patient's tolerance of previous anesthesia was also reviewed. The risks and benefits of the procedure and the sedation options and risks were discussed with the patient. All questions were answered, and informed consent was obtained. Prior Anticoagulants: The patient has taken aspirin, last dose was 1 day prior to procedure. ASA Grade Assessment: III - A patient with severe systemic disease. After reviewing the risks and benefits, the patient was deemed in satisfactory condition to undergo the procedure. After I obtained informed consent, the scope was passed under direct vision. Throughout the procedure, the patient's blood pressure, pulse, and oxygen saturations were monitored continuously. The scope was introduced through the anus and advanced to the terminal ileum. The colonoscopy was performed without difficulty. The patient tolerated the procedure well. The quality of the bowel preparation was good. The terminal ileum, ileocecal valve, appendiceal orifice, and rectum were photographed. Findings: The perianal and digital rectal examinations were normal. Six sessile polyps were found in the ascending colon and cecum. The polyps were 4 to 8 mm in size. These polyps were removed with a hot snare. Resection and retrieval were complete. Multiple small-mouthed diverticula were found in the sigmoid colon. Non-bleeding internal hemorrhoids were found during retroflexion. The hemorrhoids were small. Impression: - Six 4 to 8 mm polyps in the ascending colon and in the cecum, removed with a hot snare. Resected and retrieved. - Diverticulosis in the sigmoid colon. - Non-bleeding internal hemorrhoids. Recommendation: - Resume previous diet. - Continue present medications. - Repeat colonoscopy for surveillance based on pathology results. - Return to primary care physician as previously scheduled. Pedro Sanabria DO 04/23/2017 11:39:46 AM This report has been signed electronically. Note Initiated On: 04/23/2017 11:05 AM I attest to the content of the Intraoperative Record and orders documented therein, exceptions below
[2017-04-23 11:57] VITALS: BP 138/89; PULSE 61; O2SAT 95
--- NOTE | 2017-04-23 12:05 | Anesthesiology Progress Note ---
Anesthesia Post Op Note Date & Time Apr 23, 2017 at 12:05 Vital Signs Pain Intensity: 0 Vital Signs Past 12 Hours Date Time Temp Pulse Resp B/P (MAP) Pulse Ox O2 Delivery O2 Flow Rate FiO2 04/23/17 11:42 62 20 138/89 (105) 97 Room Air 04/23/17 11:27 65 17 122/73 (89) 97 Room Air 04/23/17 10:46 36.4 65 22 148/85 (106) 97 Room Air Notes Mental Status: alert / awake / arousable, participated in evaluation Pt Amnestic to Procedure: Yes Nausea / Vomiting: adequately controlled Pain: adequately controlled Airway Patency, RR, SpO2: stable & adequate BP & HR: stable & adequate Hydration State: stable & adequate Anesthetic Complications: no major complications apparent
== END | disposition home or self-care (01) ==
LOC: C.GI 10:24
PROVIDERS: ATTEND Internal Medicine
DX: Z12.11 Encounter for screening for malignant neoplasm of colon (principal); D12.0 Benign neoplasm of cecum; B37.81 Candidal esophagitis; K21.9 Gastro-esophageal reflux disease without esophagitis; K57.30 Diverticulosis of large intestine without perforation or abscess without bleeding; K64.8 Other hemorrhoids; E11.9 Type 2 diabetes mellitus without complications; M19.90 Unspecified osteoarthritis, unspecified site; E78.00 Pure hypercholesterolemia, unspecified; I10 Essential (primary) hypertension; Z79.52 Long term (current) use of systemic steroids; Z79.899 Other long term (current) drug therapy; Z79.84 Long term (current) use of oral hypoglycemic drugs; Z79.82 Long term (current) use of aspirin

== ENCOUNTER 2017-05-11 11:09 | Emergency (ER) | payer OTHER ==
[~2017-05-11] VITALS: Ht 177.8 cm; Wt 97.2 kg
[~2017-05-11 11:09] MED LIST changes: -FENTANYL CITRATE INJ 50 MCG/1 ML 2 ML VIAL ONE; -LIDOCAINE HCL 2% 2 ML VIAL (20MG/ML) ONE; -MIDAZOLAM HCL 1 MG/ML 2ML VIAL ONE; -PROPOFOL IV EMULSION 10 MG/ML 20 ML VIAL IV ONE; -SODIUM CHLORIDE 0.9% 500ML 500 ML IV ONE
[2017-05-11 11:15] VITALS: TEMP 36.4; Ht 177.8 cm; Wt 97.2 kg
--- NOTE | 2017-05-11 12:00 | EMERGENCY ROOM VISIT NOTE ---
History Report prepared by Tanner: Geraldine Peterson Under the Supervision of: Dr. Ba Wesley D.O. First contact with patient: 11:28 Chief Complaint: STROKE SYMPTOMS Stated Complaint: L SIDE DROOPING CHEEK, SLURRED SPEECH, Nursing Triage Summary: pt reports he has left facial droop and left eye droopy started last night. family reports slurred speech and pt has been biting left side of cheek. able to move arms and walk on own. family reports sx started at 1930 last night History of Present Illness The patient is a 76 year old male who presents to the Emergency Room with complaints of constant right facial droop beginning last night. Per son, the patient's gait seemed "different" this morning. The patient has a history of a cardiac bypass. He denies any history of stroke or Lyme's disease. The patient denies any recent tick bites. He denies any headache, nausea, vomiting, chest pain, shortness of breath, hearing changes, or taste changes. Source of History: patient Onset: last night Position: other (facial) Quality: other (droop) Timing: constant Associated Symptoms: No chest pain, No SOB, No nausea, No vomiting Review of Systems See HPI for pertinent positives & negatives. A total of 10 systems reviewed and were otherwise negative. Past Medical & Surgical Medical Problems: (1) ESOPHAGEAL REFLUX (2) HYPERLIPIDEMIA NEC/NOS (3) PAD (peripheral artery disease) Family History Heart disease Social History Smoking Status: Never Smoker Alcohol Use: none Drug Use: none Marital Status: Housing Status: lives with significant other Occupation Status: employed Current/Historical Medications Scheduled Ascorbic Acid (Ascorbic Acid), 1,000 MG PO DAILY Aspirin (Aspirin 81), 81 MG PO QAM B-Complex Vitamins (Vitamin B Complex), 1 TAB PO DAILY Calcium Carbonate-Vitamin D (Calcium + D), 1 TAB PO QAM Cholecalciferol (Vitamin D3), 4,000 UNIT PO DAILY Coenzyme Q10 (Ubidecarenone) (Co Q-10 Maximum Strength), 400 MG PO QAM Docusate Sodium (Stool Softener), 1 TAB PO QPM Ezetimibe (Zetia), 10 MG PO QPM Fish Oil ([place]-3), 2,400 MG PO QPM Tbgywdhmfkc-Qccmqlbqmpk-Dcv C- (Glucosamine Chondroitin), 1 TAB PO DAILY Magnesium Oxide (Mag-Ox), 400 MG PO DAILY Metformin Hcl (Glucophage), 0.5 TAB PO BID Metoprolol Tartrate (Lopressor), 50 MG PO QPM Metoprolol Tartrate (Lopressor) (Lopressor), 0.5 TAB PO QAM Multivitamin (Multivitamin), 1 TAB PO DAILY Omeprazole (Prilosec), 20 MG PO BID Prednisone (Prednisone), 1 TAB PO BID Prednisone (Prednisone Tab), 40 MG PO DAILY Valacyclovir Hcl (Valtrex), 1,000 MG PO TID Allergies Coded Allergies: NO KNOWN DRUG ALLERGIES (Verified Allergy, Unknown, ., 05/11/17) [place] (Verified Allergy, Unknown, ANAPHYLAXIS, 05/11/17) Uncoded Allergies: INSECT STINGS (Allergy, Unknown, ANAPHYLAXIS, 09/27/15) WASPS (Allergy, Unknown, ANAPHYLAXIS, 09/27/15) Physical Exam Vital Signs Date Time Temp Pulse Resp B/P (MAP) Pulse Ox O2 Delivery O2 Flow Rate FiO2 05/11/17 14:09 63 20 159/99 95 Room Air 05/11/17 12:42 68 20 141/77 94 Room Air 05/11/17 12:41 95 Room Air 05/11/17 12:41 98 Room Air 05/11/17 12:41 68 05/11/17 11:15 36.4 77 18 149/86 93 Room Air Physical Exam GENERAL: Patient is awake, alert, and in no acute distress. Patient is resting comfortably and showing no signs of anxiety EYES: The conjunctivae are clear. The pupils are round and reactive. Extraocular muscles are intact. Decreased ability to close right eye. EARS, NOSE, MOUTH AND THROAT: The nose is without any evidence of any deformity. Mucous membranes are moist tongue is midline. TMs clear bilaterally. NECK: The neck is nontender and supple. RESPIRATORY: Normal respiratory effort is noted there is no evidence of wheezing rhonchi or rales CARDIOVASCULAR: Regular rate and rhythm noted there no murmurs rubs or gallops normal S1 normal S2 GASTROINTESTINAL: The abdomen is soft. Bowel sounds are present in all quadrants. Abdomen is nontender MUSCULOSKELETAL/EXTREMITIES: There is no evidence of gross deformity full range of motion is noted in the hips and shoulders SKIN: There is no obvious evidence of any rash. There are no petechiae, pallor or cyanosis noted. Trace pedal edema bilaterally. NEUROLOGIC: Patient is awake alert and oriented x3 strength is symmetric patellar reflexes are 2+ bilaterally. Right facial droop with some involvement of forehead. Gait steady. Medical Decision & Procedures ER Provider Diagnostic Interpretation: Radiology results as stated below per my review and radiologist interpretation: CT HEAD WITHOUT CONTRAST (CT) FINDINGS: No intra or extra-axial mass lesions are visualized. There is no CT evidence of acute cortical infarction. There is no evidence of midline shift. There is no acute hemorrhage. No calvarial fractures are visualized. There are minor white matter hypodensities likely on a small vessel basis. 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 There is no evidence of pathologic ventricular dilatation. There is no evidence of acute sinusitis IMPRESSION: No acute intracranial findings Electronically signed by: Pavel Baron M.D. CHEST ONE VIEW PORTABLE FINDINGS: There are postsurgical changes of midline sternotomy. The heart remains mildly enlarged. There is no failure. No focal pelvic consolidation. There are linear subsegmental atelectatic changes at the lung bases. There are no significant pleural effusions[ IMPRESSION: Subsegmental atelectasis at the lung bases. No acute findings Electronically signed by: Pavel Baron M.D. Laboratory Results 05/11/17 12:00 Red Blood Count 4.75, Mean Corpuscular Volume 96.6, Mean Corpuscular Hemoglobin 33.3, Mean Corpuscular Hemoglobin Concent 34.4, Mean Platelet Volume 9.0, Neutrophils (%) (Auto) 76.0, Lymphocytes (%) (Auto) 12.7, Monocytes (%) (Auto) 9.7, Eosinophils (%) (Auto) 0.9, Basophils (%) (Auto) 0.4, Neutrophils # (Auto) 6.91, Lymphocytes # (Auto) 1.15, Monocytes # (Auto) 0.88, Eosinophils # (Auto) 0.08, Basophils # (Auto) 0.04 05/11/17 12:00 Test 05/11/17 12:00 05/11/17 13:05 White Blood Count 9.09 K/uL (4.8-10.8) Red Blood Count 4.75 M/uL (4.7-6.1) Hemoglobin 15.8 g/dL (14.0-18.0) Hematocrit 45.9 % (42-52) Mean Corpuscular Volume 96.6 fL (80-100) Mean Corpuscular Hemoglobin 33.3 pg (25-34) Mean Corpuscular Hemoglobin Concent 34.4 g/dl (32-36) Platelet Count 289 K/uL (130-400) Mean Platelet Volume 9.0 fL (7.4-10.4) Neutrophils (%) (Auto) 76.0 % Lymphocytes (%) (Auto) 12.7 % Monocytes (%) (Auto) 9.7 % Eosinophils (%) (Auto) 0.9 % Basophils (%) (Auto) 0.4 % Neutrophils # (Auto) 6.91 K/uL (1.4-6.5) Lymphocytes # (Auto) 1.15 K/uL (1.2-3.4) Monocytes # (Auto) 0.88 K/uL (0.11-0.59) Eosinophils # (Auto) 0.08 K/uL (0-0.5) Basophils # (Auto) 0.04 K/uL (0-0.2) RDW Standard Deviation 47.4 fL (36.4-46.3) RDW Coefficient of Variation 13.5 % (11.5-14.5) Immature Granulocyte % (Auto) 0.3 % Immature Granulocyte # (Auto) 0.03 K/uL (0.00-0.02) Prothrombin Time 10.9 SECONDS (9.0-12.0) Prothromb Time International Ratio 1.0 (0.9-1.1) Activated Partial Thromboplast Time 24.0 SECONDS (21.0-31.0) Partial Thromboplastin Ratio 0.9 Anion Gap 6.0 mmol/L (3-11) Est Creatinine Clear Calc Drug Dose 73.4 ml/min Estimated GFR () 86.3 Estimated GFR (Non- 74.5 BUN/Creatinine Ratio 25.8 (10-20) Calcium Level 9.0 mg/dl (8.5-10.1) Magnesium Level 2.1 mg/dl (1.8-2.4) Total Bilirubin 0.4 mg/dl (0.2-1) Direct Bilirubin < 0.1 mg/dl (0-0.2) Aspartate Amino Transf (AST/SGOT) 15 U/L (15-37) Alanine Aminotransferase (ALT/SGPT) 37 U/L (12-78) Alkaline Phosphatase 65 U/L (45-117) Troponin I < 0.015 ng/ml (0-0.045) Total Protein 6.9 gm/dl (6.4-8.2) Albumin 3.6 gm/dl (3.4-5.0) Thyroid Stimulating Hormone (TSH) 1.650 uIu/ml (0.300-4.500) Lyme Disease IgG Antibody NEG (NEG) Lyme Disease IgM Antibody NEG (NEG) Urine Color DK YELLOW Urine Appearance CLEAR (CLEAR) Urine pH 7.0 (4.5-7.5) Urine Specific [place] 1.022 (1.000-1.030) Urine Protein NEG (NEG) Urine Glucose (UA) NEG (NEG) Urine Ketones NEG (NEG) Urine Occult Blood NEG (NEG) Urine Nitrite NEG (NEG) Urine Bilirubin NEG (NEG) Urine Urobilinogen NEG (NEG) Urine Leukocyte Esterase NEG (NEG) Laboratory results per my review. Medications Administered Medications (Trade) Dose Ordered Sig/Dara Route Start Time Stop Time Status Last Admin Dose Admin Prednisone (PredniSONE TAB) 60 mg NOW STAT PO 05/11/17 13:15 05/11/17 13:16 DC 05/11/17 13:49 60 MG Valacyclovir HCl (Valtrex Tab) 1,000 mg NOW ONCE PO 05/11/17 13:15 05/11/17 13:16 DC 05/11/17 13:49 1,000 MG ECG Per My Interpretation Indication: other (facial droop) Rate (beats per minute): 65 Rhythm: normal sinus Findings: no ectopy, other (no acute ST segment) Comparison ECG Date: 04/20/16 Change: no significant change ED Course 1133: The patient was evaluated in room C5. A complete history and physical examination were performed. 1246: I updated the patient on his test results. 1315: Ordered Valtrex Tab 1000 mg PO, Prednisone 60 mg PO. 1350: I updated the patient on his results. He is resting comfortable. 1408: Upon reevaluation, the patient is resting comfortably. I discussed the results and treatment plan with him. He verbalized agreement of the treatment plan. The patient was discharged home. Medical Decision Differential diagnosis: Etiologies such as metabolic, infection, hypo/hyperglycemia, electrolyte abnormalities, cardiac sources, intracerebral event, toxicologic, neurologic, as well as others were entertained. Nursing notes reviewed. Additional history is obtained from the patient's son. The patient is a 76-year-old male who presented to the emergency department for evaluation of right facial droop. 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 He was able to wrinkle his forehead initially but it was asymmetric. He was reevaluated multiple times and appear to have more involvement of the forehead on reevaluation. I discussed the patient's laboratory and radiographic studies with him. His symptoms have been ongoing since overnight and his initial CAT scan did not show any acute changes. His Lyme screen was negative so the patient was started on Valtrex as well as prednisone. The patient was encouraged to call his primary care physician to schedule a follow-up appointment. He was also encouraged to rest and avoid any strenuous activity. Otherwise he was encouraged to return to the emergency department immediately if any signs of stroke or worsening symptoms were to develop. Otherwise I encouraged him to follow-up with his family doctor for reevaluation. Medication Reconcilliation Current Medication List: was personally reviewed by me Blood Pressure Screening Patient's blood pressure: Elevated blood pressure Blood pressure disposition: Elevated BP felt to be situational Impression Primary Impression: Duque's palsy Additional Impression: Facial droop Scribe Attestation The scribe's documentation has been prepared under my direction and personally reviewed by me in its entirety. I confirm that the note above accurately reflects all work, treatment, procedures, and medical decision making performed by me. Departure Information Dispostion Home / Self-Care Prescriptions Prednisone (Prednisone Tab) 20 Mg Tab 40 MG PO DAILY, #10 TAB Prov: Ba Wesley, DO 05/11/17 Valacyclovir Hcl (VALTREX) 1 Gm Tab 1000 MG PO TID, #21 TAB Prov: Ba Wesley, DO 05/11/17 Referrals Rodo Metcalf III, CRNP (PCP) Forms HOME CARE DOCUMENTATION FORM, IMPORTANT VISIT INFORMATION Patient Instructions ED Coker Palsy, My [facility] Additional Instructions Continue all medications as prescribed. Call your family doctor to schedule a follow-up appointment. He may require further studies. Return to the emergency department immediately if signs of stroke develop or if anything changes worsens or the need arises. Continue to use eye ointment such as Lacri- Lube in the right eye 3-4 times a day and before bed. Problem Qualifiers
[2017-05-11 12:24] LABS: BASO % 0.4 %; BASO ABS # 0.04 K/uL (0-0.2); EOS % 0.9 %; EOS ABS # 0.08 K/uL (0-0.5); HEMATOCRIT 45.9 % (42-52); HEMOGLOBIN 15.8 g/dL (14.0-18.0); IG# 0.03 K/uL (0.00-0.02); LYMPH % 12.7 %; LYMPH ABS # 1.15 K/uL (1.2-3.4); MEAN CELL VOLUME 96.6 fL (80-100); MEAN CORPUSCULAR HEMOGLOBIN 33.3 pg (25-34); MEAN CORPUSCULAR HGB CONC 34.4 g/dl (32-36); MONO % 9.7 %; MONO ABS # 0.88 K/uL (0.11-0.59); NEUT ABS # 6.91 K/uL (1.4-6.5); PLATELET COUNT 289 K/uL (130-400); RED CELL DISTRIBUTION WIDTH CV 13.5 % (11.5-14.5); RED CELL DISTRIBUTION WIDTH SD 47.4 fL (36.4-46.3); WHITE BLOOD COUNT 9.09 K/uL (4.8-10.8)
--- NOTE | 2017-05-11 12:35 | DIAGNOSTIC IMAGING REPORT ---
CHEST ONE VIEW PORTABLE CLINICAL HISTORY: Altered mental status. Weakness. COMPARISON STUDY: April 20, 2016 FINDINGS: There are postsurgical changes of midline sternotomy. The heart remains mildly enlarged. There is no failure. No focal pelvic consolidation. There are linear subsegmental atelectatic changes at the lung bases. There are no significant pleural effusions[ IMPRESSION: Subsegmental atelectasis at the lung bases. No acute findings Electronically signed by: aPvel Baron M.D. 05/11/2017 12:33 PM Dictated Date/Time: 05/11/2017 12:33 PM
[2017-05-11 12:37] LABS: ALBUMIN 3.6 gm/dl (3.4-5.0); ALT/SGPT 37 U/L (12-78); AST/SGOT 15 U/L (15-37); BLOOD UREA NITROGEN 25 mg/dl (7-18); CARBON DIOXIDE 27 mmol/L (21-32); CREATININE 0.97 mg/dl (0.60-1.40); GLUCOSE 112 mg/dl (70-99); POTASSIUM 4.4 mmol/L (3.5-5.1); SODIUM 138 mmol/L (136-145)
--- NOTE | 2017-05-11 12:37 | DIAGNOSTIC IMAGING REPORT ---
CT HEAD WITHOUT CONTRAST (CT) CLINICAL HISTORY: right facial droop COMPARISON STUDY: No previous studies for comparison. TECHNIQUE: Axial CT of the brain is performed from the vertex to the skull base. IV contrast was not administered for this examination. A dose lowering technique was utilized adhering to the principles of ALARA. CT DOSE: 614.27 mGy.cm FINDINGS: No intra or extra-axial mass lesions are visualized. There is no CT evidence of acute cortical infarction. There is no evidence of midline shift. There is no acute hemorrhage. No calvarial fractures are visualized. There are minor white matter hypodensities likely on a small vessel basis. 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 There is no evidence of pathologic ventricular dilatation. There is no evidence of acute sinusitis IMPRESSION: No acute intracranial findings Electronically signed by: Pavel Baron M.D. 05/11/2017 12:36 PM Dictated Date/Time: 05/11/2017 12:35 PM
[2017-05-11 12:41] VITALS: O2SAT 95
[2017-05-11 12:47] LABS: ALKALINE PHOSPHATASE 65 U/L (45-117); TOTAL PROTEIN 6.9 gm/dl (6.4-8.2)
[2017-05-11] MEDS ORDERED: PRED20TA2 PO (13:56)
[2017-05-11] MEDS ORDERED: VALA1TAB2 PO (13:56)
[2017-05-11 14:09] VITALS: BP 159/99; PULSE 63; O2SAT 95
== END 2017-05-11 14:14 | disposition home or self-care (01) ==
LOC: C.EDB 11:12 → C.EDC 14:14
DX: G51.0 Bell's palsy (principal); K21.9 Gastro-esophageal reflux disease without esophagitis; E78.5 Hyperlipidemia, unspecified; I73.9 Peripheral vascular disease, unspecified; Z82.49 Family history of ischemic heart disease and other diseases of the circulatory system; Z79.82 Long term (current) use of aspirin; Z79.899 Other long term (current) drug therapy; Z91.030 Bee allergy status

== ENCOUNTER → 2017-05-19 | Outpatient (CLI) | payer OTHER ==
[~2017-05-19] MED LIST changes: +PRED20TA2 PO; +VALA1TAB2 PO
[2017-05-19 15:11] LABS: BLOOD UREA NITROGEN 23 mg/dl (7-18); CARBON DIOXIDE 26 mmol/L (21-32); CREATININE 1.02 mg/dl (0.60-1.40); GLUCOSE 136 mg/dl (70-99); POTASSIUM 4.1 mmol/L (3.5-5.1); SODIUM 137 mmol/L (136-145)
[2017-05-19 15:13] LABS: LDL CHOLESTEROL (DIRECT) 120 mg/dl
== END | disposition home or self-care (01) ==
LOC: C.LAB1850 13:35
PROVIDERS: ATTEND Nurse Practitioner Family
DX: E11.9 Type 2 diabetes mellitus without complications (principal); E78.5 Hyperlipidemia, unspecified

== ENCOUNTER → 2017-06-24 | Outpatient (CLI) | payer OTHER ==
[~2017-06-24] MED LIST changes: -VALA1TAB2 PO
== END | disposition home or self-care (01) ==
LOC: C.MAMM 09:06
PROVIDERS: ATTEND Nurse Practitioner Family
DX: Z13.820 Encounter for screening for osteoporosis (principal)